=== PATIENT | male | born 1965 | race Caucasian/White ===

== ENCOUNTER 2021-02-09 09:59 | Day surgery (SDC) | payer OTHER ==
[2021-02-05 17:41] VITALS: BMI 24.7
[2021-02-09 12:30] VITALS: PULSE 67; TEMP 98.2
[2021-02-09 12:42] VITALS: BP 94/54
== END 2021-02-09 13:00 | disposition home or self-care (01) ==
LOC: FASU-ENDO 09:59
PROVIDERS: ATTEND Internal Medicine Gastroenterology
PROC: 0DBL8ZX Excision of Transverse Colon, Via Natural or Artificial Opening Endoscopic, Diagnostic (ICD-10-PCS; 2021-02-09)
PROC: 0DBN8ZX Excision of Sigmoid Colon, Via Natural or Artificial Opening Endoscopic, Diagnostic (ICD-10-PCS; 2021-02-09)
PROC: 0DBP8ZX Excision of Rectum, Via Natural or Artificial Opening Endoscopic, Diagnostic (ICD-10-PCS; 2021-02-09)
PROC: 0DBM8ZX Excision of Descending Colon, Via Natural or Artificial Opening Endoscopic, Diagnostic (ICD-10-PCS; principal; 2021-02-09 11:35)
DX: D12.4 Benign neoplasm of descending colon (principal); D12.5 Benign neoplasm of sigmoid colon; K64.1 Second degree hemorrhoids; R19.7 Diarrhea, unspecified
CPT/HCPCS: 88305-TC

== ENCOUNTER 2025-05-06 08:58 | Day surgery (SDC) | payer OTHER, MEDICARE ==
[2025-05-02 14:06] VITALS: BMI 21.9
[2025-05-06 10:34] VITALS: RESP 18
[2025-05-06 10:35] VITALS: PULSE 62
[2025-05-06 11:58] VITALS: BP 120/70; TEMP 97.4
== END 2025-05-06 11:04 | disposition home or self-care (01) ==
LOC: FASU-ENDO 08:58
PROVIDERS: ATTEND Internal Medicine Gastroenterology
PROC: 0DBL8ZX Excision of Transverse Colon, Via Natural or Artificial Opening Endoscopic, Diagnostic (ICD-10-PCS; 2025-05-06)
PROC: 0DBF8ZX Excision of Right Large Intestine, Via Natural or Artificial Opening Endoscopic, Diagnostic (ICD-10-PCS; 2025-05-06)
PROC: 0DBG8ZX Excision of Left Large Intestine, Via Natural or Artificial Opening Endoscopic, Diagnostic (ICD-10-PCS; principal; 2025-05-06 09:52)
DX: Z12.11 Encounter for screening for malignant neoplasm of colon (principal); Z86.0100 Personal history of colon polyps, unspecified; K63.89 Other specified diseases of intestine; K64.8 Other hemorrhoids; K52.89 Other specified noninfective gastroenteritis and colitis
CPT/HCPCS: 88305-TC